=== PATIENT | male | born 1960 | race Caucasian/White ===

== ENCOUNTER 2016-09-26 14:22 | Outpatient (CLI) | payer OTHER ==
[~2016-09-26 14:22] MED LIST: ASP81CT PO; ASPI-892 PO; ATEN50TA PO; ATR20T PO; BUDE6HFA IH; CYCL10TA9 PO; FENO48TA2 PO; HYDR-3456 PO; HYOS0.1217 PO; INSASP10V SC; INSU100V16 SC; LEVE1U SQ; LIRA0.6P SQ; LISI10TA PO; METF-472 PO; MTF500T PO; NITR0.3T6 SL; NITR0.4T3 SL; OMEG-12 PO; OMEP20CA12 PO; ONDA-42 SL; PARO20TA57 PO; PREG100C22 PO; RT-ALBUINH IH; TIOT18CA IH; TIOT18CA2 IH; TRAM50TA2 PO
== END 2016-09-26 14:39 | disposition home or self-care (01) ==
LOC: SLEEP 14:22
PROVIDERS: ATTEND Nurse Practitioner Family
DX: G47.33 Obstructive sleep apnea (adult) (pediatric) (principal); I10 Essential (primary) hypertension

== ENCOUNTER → 2018-01-24 | Outpatient (CLI) | payer OTHER ==
[~2018-01-24] MED LIST changes: -NITR0.4T3 SL; +NITR0.4T42 SL
[2018-01-24 12:43] LABS: BUN/CREATININE RATIO 18; CREATININE SERUM 0.78 MG/DL (0.60-1.30); GFR ESTIMATED > 60
[2018-01-24 12:44] LABS: ABG BASE EXCESS -2.8 MMOL/L (-2.5-2.5); ABG OXYGEN SATURATION 93 % (94-100); ABG PCO2 38 MMHG (35-45); ABG PH 7.37 (7.37-7.43); ABG PO2 55 MMHG (79-93); ABG TCO2 23.1 MMOL/L (21.0-31.0)
[2018-01-24 12:47] LABS: ALLENS TEST YES-POS; INSPIRED O2 RA; PATIENT TEMP 96.6; VENTILATOR NO
== END ==
LOC: LAB 12:03
PROVIDERS: ATTEND Nurse Practitioner Family
DX: J43.9 Emphysema, unspecified (principal)
CPT/HCPCS: 36415; 82565; 82805; 84520

== ENCOUNTER → 2018-02-03 | Outpatient (CLI) | payer OTHER ==
[~2018-02-03] MED LIST changes: +CATHETER FLUSH 10 ML SYR IV PRN; +IOHEXOL 350 MG/ML 100 ML (OMNIPAQUE 350) VIAL IV ONE; +NS 100 ML (IVPB) BAG IV ONE; +RT-ALBUTEROL SULF 2.5 MG/3 ML PRE-MIX VIAL INH ONE
--- NOTE | 2018-02-03 19:05 | Diagnostic Imaging Report ---
PROCEDURE: CT chest with contrast only. TECHNIQUE: Multiple contiguous axial images were obtained through the chest after administration of intravenous contrast. INDICATION: History of COPD/emphysema, difficulty breathing. CORRELATION STUDY: None. FINDINGS: Heart size is normal. There is apparent coronary artery stent over the lesion of LAD. Additional coronary artery calcification is present. Thoracic aortic contour is unremarkable. No pathologically enlarged mediastinal and/or hilar lymph nodes. Few small bilateral axillary lymph nodes. Low-density nodule of thyroid gland right lobe. EG junction appearing unremarkable. Lung volumes are overall relatively normal. There are few areas of bleb/bulla formation of the lung apices, right slightly greater than left. No consolidating infiltrate. Likely minimal scarring about the lingula of the left upper lobe. No significant pleural effusion. Visualized osseous structures do demonstrate slight accentuated thoracic kyphotic curvature with multilevel thoracic spondylosis and endplate osteophyte formation. Visualized upper abdominal structures demonstrate gallbladder to be contracted. Stomach is mildly distended with retained gastric contents, likely owing to recent meal ingestion. Replaced hepatic artery is incidentally noted. IMPRESSION: 1. Negative for acute abnormality of the chest. No significant pulmonary infiltrate. 2. Presence of coronary artery calcification. Dictated by: Dictated on workstation # [id number]
== END ==
LOC: RAD 11:38
PROVIDERS: ATTEND Nurse Practitioner Family
DX: I25.10 Atherosclerotic heart disease of native coronary artery without angina pectoris (principal); J43.9 Emphysema, unspecified
CPT/HCPCS: 71260; 94060; 94726; 94729